=== PATIENT | male | born 1985 | race Caucasian/White ===

== ENCOUNTER 2023-07-22 07:31 | Outpatient (AMB) | payer OTHER, SELFPAY ==
--- NOTE | 2023-07-22 07:40 | MHC.PC.OV ---
Vital Signs 07/22/23 07:41 Weight 199 lb BP 108/66 Blood Pressure Location Rt brachial Position Sitting Pulse 69 Pulse Source Pulse Oximeter Pulse Oximetry (%) 98 Oxygen Delivery Method Room Air Intake Visit Reasons: Annual PE Allergies bupropion [From Wellbutrin SR] Adverse Reaction (Verified 07/22/23 07:42) adverse effect Medication List - Last Reconciled 07/22/23 by NORMA Etienne dextroamphetamine-amphetamine 15 mg 1 tab PO DAILY 30 days Tobacco use date assessed: 12/23/22 Dental Screening Dental Screen Date: 07/22/23 Did you have a dental visit in the last 12 months?: Yes Did you have a dental problem in the last 6 months where you did not have access to dental care?: No Was dental information given to patient?: Patient has dentist HPI Annual PE HPI Details Pt is here for a PE. Will order labs. [facility] Medical History (Updated 07/22/23 @ 08:05 by NORMA Etienne) Ulnar neuropathy of left upper extremity Left carpal tunnel syndrome Idiopathic peripheral neuropathy Insomnia Surgical History History of hernia repair History of root canal procedure Family History Father Unknown family medical history Mother Unknown family medical history Substance use disorder Mental health disorder Maternal Grandfather Lung cancer Maternal Grandmother Lung cancer Paternal Uncle Vasculitis Stroke Paternal Grandfather Cancer Brother No problems noted. Brother No problems noted. Sister No problems noted. Daughter No problems noted. Social History Housing: House Patient Tobacco Use Status: Former Tobacco user Quit Date: quit 2017 Tobacco use type: Smokeless Tobacco e-Cigarette/Vaping Use: Never Used Second Hand Smoke Exposure: No service: Yes Current occupational status: employed Current occupation: [employer] Current occupational exposures/hazards: No Cognitive needs: No Hearing needs: No Vision needs: No Questionnaire Thrive Questionnaire Date Thrive assessed: 12/23/22 AUDIT C Alcohol Use Questionnaire (AUDIT-C) 1. How often do you have a drink containing alcohol?: 2-3 times a week 2. How many drinks containing alcohol do you have on a typical day when you are drinking?: 1 or 2 3. How often do you have six or more drinks on one occasion?: Never Total Score: 3 Score Reviewed/Action Taken: No MARICRUZ-7 AMB Questionnaire MARICRUZ-7 Date MARICRUZ - 7 assessed: 12/23/22 Source: Developed by Drs. Todd Pollack, Eve Rivers, Lito Vogel and colleagues, with an educational kelsie from [employer]. Review of Systems Const Denies chills and Denies fever(s) Eyes Denies blurry vision ENT Denies vertigo, Denies dizziness and Denies sore throat Card Denies chest pain at rest, Denies chest pain with activity, Denies diaphoresis, Denies dyspnea and Denies dyspnea on exertion Resp Denies cough, Denies dyspnea, Denies dyspnea on exertion and Denies wheezing GI Denies abdominal pain, Denies melena, Denies hematochezia, Denies constipation, Denies diarrhea and Denies loose stools Denies hematuria Musc Reports numbness (LUE and BLE) Skin/Breast Denies lesions Neuro Denies vertigo, Denies dizziness and Reports numbness (LUE and BLE) Psych Denies anxiety, Denies depression, Denies homicidal ideation, Denies suicidal ideation and Denies other (substance abuse) Aller/Immun Denies wheezing Physical exam (Primary Care) Vital Signs: Last Vital Signs Pulse 69 07/22/23 07:41 BP 108/66 07/22/23 07:41 Pulse Ox 98 07/22/23 07:41 Oxygen Delivery Method Room Air 07/22/23 07:41 Tobacco/Smoking Status: Tobacco use Status Tobacco use date assessed 12/23/22 07/22/23 07:41 Patient Tobacco Use Status Former Tobacco user 07/22/23 07:41 Tobacco use type Smokeless Tobacco 07/22/23 07:41 e-Cigarette/Vaping Use Never Used 07/22/23 07:41 Thrive Assessment: Date of Thrive Assessment Date Thrive assessed 12/23/22 07/22/23 07:41 Const General: cooperative Nutritional Appearance: well nourished Orientation/consciousness: patient oriented x3 HENMT Head: Yes normal to inspection, Yes normocephalic and Yes atraumatic Ears: TM's normal bilaterally Eyes General: appearance normal, both eyes and all related structures Alignment and Position: alignment normal and position normal Neck Neck: Yes normal visual inspection and Yes no lymphadenopathy Thyroid: Thyroid normal Resp Effort & Inspection: normal respiratory effort Auscultation: clear to auscultation bilaterally Cardio Rate: regular rate Rhythm: regular rhythm Heart sounds: S1 normal heart sound present, S2 normal heart sound present and no murmurs GI Palpation (GI): Soft to palpation and nontender Auscultation: normal bowel sounds Male General Exam: Yes normal external exam Penis: normal penis Scrotum: scrotum normal, testes descended bilaterally and no inguinal hernias Testes: no testicular mass Skin Rashes: no rashes Neuro General: patient oriented x3, moves all extremities, no focal motor deficits and deep tendon reflexes 2+ bilaterally Romberg Test: Negative Psych Appearance: grossly normal Mental Status: mental status grossly normal Speech and movement: Normal speech and movement present Affect: normal affect Attitude: cooperative Thought process: Normal thought process present Thought content: Normal thought content present Insight: Good insight present (Psych) Judgement: Good judgement present (Psych) Assessment and Plan Assessment & Plan (1) Physical exam: Code(s): Z. - Encounter for general adult medical examination without abnormal findings Plan: Labs ordered Plan The patient agreed to the use of a director biomedical engineering for this encounter. Scribed for NORMA Hay by Debi Frederick director biomedical engineering, on 07/22/2023 at 07:50 EST. Orders: Orders Comprehensive [place]. Panel Fast Today Z00. - Encounter for general adult medical examination without abnormal findings UA CC w/rflx Micro + Cult Today Z00. - Encounter for general adult medical examination without abnormal findings Complete Blood Count Auto Diff Today Z00.00 - Encounter for general adult medical examination without abnormal findings TSH reflex Free T4 Today Z00.00 - Encounter for general adult medical examination without abnormal findings Lipid Panel Today Z00.00 - Encounter for general adult medical examination without abnormal findings Coding Level of Care Code Est Pt Prev Care 18-39y(71052) Diagnoses Physical exam Z00.00
[2023-07-22 07:41] VITALS: BP 108/66; PULSE 69; O2SAT 98
== END 2023-07-22 12:47 | disposition home or self-care (01) ==
PROVIDERS: Visit Provider Nurse Practitioner Family
DX: Z00.00 Encounter for general adult medical examination without abnormal findings (principal)
CPT/HCPCS: 99395

== ENCOUNTER 2025-04-13 10:06 | Outpatient (AMB) | payer OTHER, SELFPAY ==
--- NOTE | 2025-04-13 10:33 | A.OFFPC_ITS ---
Vital Signs 04/13/25 10:35 Height 5 ft 10 in Weight 204 lb BMI 29.3 BP 112/78 Blood Pressure Location Lt brachial Position Sitting Respiration 16 Pulse 91 Temp 98.1 F Temp Source Oral Pulse Oximetry (%) 97 Oxygen Delivery Method Room Air Intake Visit Reasons: Request a PE Bioinformatics Computer Scientist Required: No Accompanied by: Self / Same As Patient Allergies bupropion (From Wellbutrin SR) Adverse Reaction (Verified 04/13/25 10:40) adverse effect Medication List - Last Reconciled 04/13/25 by DALLAS EtienneP- dextroamphetamine-amphetamine 15 mg 1 tab PO DAILY 30 days Tobacco use date assessed: 04/13/25 Dental Screening Dental Screen Date: 04/13/25 Did you have a dental visit in the last 12 months?: Yes Did you have a dental problem in the last 6 months where you did not have access to dental care?: No Was dental information given to patient?: Patient has dentist HPI Request a PE HPI Details History of Present Illness The patient is a 39-year-old male presenting for a physical examination. He reports a history of neuropathy that was evaluated by a specialist in [place] many years ago. He is not interested in pharmacological treatment with gabapentin or pregabalin at this time. The patient also experiences chronic diarrhea, characterized by loose stools occurring up to four times daily for the past ten years. He suspects a component of irritable bowel syndrome and is considering dietary fiber supplementation and loperamide for management. Will contact me with any worsening symptoms Additionally, he reports bilateral lat muscle spasms, particularly painful when rising from a prone position. A stretching routine has been recommended to alleviate symptoms. The patient also has cervical neck pain, but denies any changing radicular symptoms. A cervical spine x-ray has been ordered to further evaluate the condition. Health Maintenance Social History Review of Systems - Neurological: Reports neuropathy, sena es interest in pharmacological treatment - Gastrointestinal: Reports chronic loos e stools for years, suspects IBS component, denies any blood in stool - Musculoskeletal: Reports bilateral lat issimus dorsi muscle spasms, denies radicular symptoms -denies any fevers chills, SI or HI Physical Exam General: Cooperative, healthy appearing, comfortable, no acute distress and well developed Orientation: Patient oriented x3 Limitations: No limitations Head: Normal to inspection Ears: Hearing grossly normal bilaterally Nose: Normal external nose present Face and sinus: Normal facial exam Eyes: Appearance normal, both eyes and all related structures Neck: Normal visual inspection and Yes full ROM, cervical neck pain present, negative Spurling's test Respiratory: Normal respiratory effort and able to speak in complete sentences. Clear to auscultation bilaterally Cardiovascular: Regular rate and rhythm. Normal S1 and S2 GI: Normal to inspection. Soft to palpation and nontender : testicles without masses/lesions and no hernias appreciated Skin: No rashes or lesions noted Neuro: Patient oriented x3, reports Extremities: Normal to inspection, reports bilateral lat pain, turning upper torso side to side with tightness described to mid lateral lats bilat Results Plan The patient will be started on a bulking fiber supplement to address the chronic diarrhea, with the option to use loperamide as needed for symptom control. A stretching routine has been recommended to alleviate the bilateral latissimus dorsi muscle spasms. Thoracic and cervical spine x-rays have been ordered to evaluate the musculoskeletal complaints, particularly the cervical neck pain. Discussion Notes I discussed with the patient the potential benefits of using bulking fiber and loperamide for managing his chronic diarrhea. We also talked about the importance of a stretching routine to help with his muscle spasms and the rationale for obtaining thoracic and cervical spine x-rays to further inves tigate his musculoskeletal symptoms. Patient Instructions - Start taking a bulking fiber supplemen t to help with loose stools. - Use loperamide as needed for diarrhea control. - Follow a stretching routine to allevia te muscle spasms. - Undergo thoracic and cervical spine x- rays as ordered. [facility] Medical History Ulnar neuropathy of left upper extremity Left carpal tunnel syndrome Idiopathic peripheral neuropathy Insomnia Surgical History History of hernia repair History of root canal procedure Family History Father Unknown family medical history Mother Unknown family medical history Substance use disorder Mental health disorder Maternal Grandfather Lung cancer Maternal Grandmother Lung cancer Paternal Uncle Vasculitis Stroke Paternal Grandfather Cancer Brother No problems noted. Brother No problems noted. Sister No problems noted. Daughter No problems noted. Social History Housing: House Patient Tobacco Use Status: Former Tobacco user Tobacco use type: Smokeless Tobacco e-Cigarette/Vaping Use: Never Used Second Hand Smoke Exposure: No service: Yes Current occupational status: employed Current occupation: [employer] Current occupational exposures/hazards: No Cognitive needs: No Hearing needs: No Vision needs: No Questionnaire PHQ-9 Over the last 2 weeks, how often have you been bothered by any of the following problems? 1. Little interest or pleasure in doing things: not at all 2. Feeling down, depressed, or hopeless: not at all 3. Trouble falling or staying asleep, or sleeping too much: several days 4. Feeling tired or having little energy: not at all 5. Poor appetite or overeating: not at all 6. Feeling bad about yourself - or that you are a failure or have let yourself or your family down: not at all 7. Trouble concentrating on things, such as reading the newspaper or watching television: several days 8. Moving or speaking so slowly that other people could have noticed. Or the opposite - being so fidgety or restless that you have been moving around a lot more than usual: not at all 9. Thoughts that you would be better off or of hurting yourself in some way: not at all Total score: 2 Depression Screening Interpretation: Negative Depression Screening Done: Yes 61739 - PHQ-9 Billing: Yes Source: Developed by Drs. Todd Pollcak, Eve Rivers, Lito Vogel and colleagues, with an educational kelsie from [employer]. Thrive Questionnaire Date Thrive assessed: 12/23/22 I am a: Patient What is your living situation today?: I have a steady place to live Within the past 12 months, did the food you bought not last and you didn't have the money to get more?: Never true Within the past 12 months, did you worry whether your food would run out before you got money to buy more?: Never true Do you have trouble paying for medicines?: No Do you have trouble getting transportation to medical appointments?: No Do you have trouble paying your heating and electricity bill?: No Do you have trouble taking care of your child, family member or friend?: No Do you have trouble with day-to-day activities such as bathing, preparing meals, shopping, managing finances, etc.?: No Are you currently unemployed and looking for a job?: No Are you interested in more education?: No Please select the resources that you would like help with: None Currently or been in a relationship where the following occur: No concerns reported THRIVE Score: 0 AUDIT C Alcohol Use Questionnaire (AUDIT-C) 1. How often do you have a drink containing alcohol?: 2-4 times a month 2. How many drinks containing alcohol do you have on a typical day when you are drinking?: 3 or 4 3. How often do you have six or more drinks on one occasion?: Less than monthly Total Score: 4 MARICRUZ-7 AMB Questionnaire MARICRUZ-7 Date MARICRUZ - 7 assessed: 04/13/25 Feeling nervous, anxious, or on edge: 0 = Not at all Not being able to stop or control worryin = Not at all Worrying too much about different things: 0 = Not at all Trouble relaxin = Not at all Being so restless that it is hard to sit still: 0 = Not at all Becoming easily annoyed or irritable: 0 = Not at all Feeling afraid as if something awful might happen: 0 = Not at all Total MARICRUZ-7 score (0-4 normal; 5-9 mild; 10-14 moderate; 15-21 severe): 0 Source: Developed by Drs. Todd Pollack, Eve Rivers, Lito Vogel and colleagues, with an educational kelsie from [employer]. MARICRUZ-7 Assessment Billing MARICRUZ-7 Assessment Tool: MARICRUZ-7 Assessment 69157 Physical exam (Primary Care) BMI result Body Mass Index 29.3 Tobacco/Smoking Status: Tobacco use Status Tobacco use date assessed 12/23/22 04/13/25 10:36 Patient Tobacco Use Status Former Tobacco user 04/13/25 10:36 Tobacco use type Smokeless Tobacco 04/13/25 10:36 e-Cigarette/Vaping Use Never Used 04/13/25 10:36 PHQ-9: PHQ-9 Score PHQ-9: Total score 2 04/13/25 10:36 Depression Screening Interpretation: Negative Thrive Assessment: Date of Thrive Assessment Date Thrive assessed 12/23/22 04/13/25 10:36 Currently or been in a relationship where the following occur: No concerns reported Coding Level of Care Code Est Pt Level 3 (79903) Est Pt Prev Care 18-39y(78349) Diagnoses Physical exam Z00.00 Thoracic back pain M54.6 Cervical neck pain with evidence of disc disease M50.90 Loose stools R19.5 Additional Codes MARICRUZ-7 Assessment Billing - MARICRUZ-7 Assessment Tool: MARICRUZ-7 Assessment 36611 ([id number]) PHQ-9 - 09626 - PHQ-9 Billing: Yes ([id number]) Assessment & Plan Assessment & Plan (1) Physical exam: Code(s): Z00.00 - Encounter for general adult medical examination without abnormal findings Category: Medical (2) Thoracic back pain: Code(s): M54.6 - Pain in thoracic spine Category: Medical (3) Cervical neck pain with evidence of disc disease: Code(s): M50.90 - Cervical disc disorder, unspecified, unspecified cervical region Category: Medical (4) Loose stools: Code(s): R19.5 - Other fecal abnormalities Category: Medical Plan . Orders: Orders Lipid Panel Today Z00.00 - Encounter for general adult medical examination without abnormal findings XR cervical spine 2V Today M50.90 - Cervical disc disorder, unspecified, un specified cervical region Complete Blood Count Auto Diff Today Z00.00 - Encounter for general adult medical examination without abnormal findings Comprehensive [place]. Panel Fast Today Z00.00 - Encounter for general adult medical examination without abnormal findings TSH reflex Free T4 Today Z00.00 - Encounter for general adult medical examination without abnormal findings UA CC w/rflx Micro + Cult Today Z00.00 - Encounter for general adult medical examination without abnormal findings XR thoracic spine 2V Today M54.6 - Pain in thoracic spine
[2025-04-13 10:35] VITALS: BP 112/78; PULSE 91; RESP 16; TEMP 36.7; O2SAT 97; BMI 29.3
== END 2025-04-13 11:38 | disposition home or self-care (01) ==
PROVIDERS: PCP Nurse Practitioner Family; Visit Provider Nurse Practitioner Family
DX: Z00.00 Encounter for general adult medical examination without abnormal findings (principal); M54.6 Pain in thoracic spine; M50.90 Cervical disc disorder, unspecified, unspecified cervical region; R19.5 Other fecal abnormalities

== ENCOUNTER → 2025-04-13 10:06 | Outpatient (BNVA) | payer OTHER, SELFPAY | PROVIDERS: PCP Nurse Practitioner Family; Visit Provider Nurse Practitioner Family | DX: Z00.00 Encounter for general adult medical examination without abnormal findings (principal); M54.6 Pain in thoracic spine; M50.90 Cervical disc disorder, unspecified, unspecified cervical region; R19.5 Other fecal abnormalities | CPT/HCPCS: 96127; 99212 ==

== ENCOUNTER 2025-04-14 07:17 | Outpatient (REF) | payer OTHER, SELFPAY ==
--- NOTE | ~2025-04-14 | XR_ITS ---
EXAMINATION: XR THORACIC SPINE CLINICAL INFORMATION: M54.6 - Pain in thoracic spine COMPARISON: None available. TECHNIQUE: AP and lateral views FINDINGS: Mild examination curvature of the thoracic spine. Mild endplate sclerosis and small marginal osteophyte formation lower thoracic spine. No acute cortical disruption or malalignment. Calcified lymph nodes in the right perihilar with a 5 mm calcified nodule right lower lung lobe region. XR/XR thoracic spine 2V IMPRESSION: Mild multilevel lower thoracic spondylosis. Mild scoliosis. Consider prior granulomatous disease/Ranke complex, right perihilar. Electronically signed by: Ranjan Cates MD 04/14/2025 01:58 PM EDT
--- NOTE | ~2025-04-14 | XR_ITS ---
EXAMINATION: XR CERVICAL SPINE CLINICAL INFORMATION: M50.90 - Cervical disc disorder, unspecified, unspecified cervical region COMPARISON: None available. TECHNIQUE: AP and lateral views FINDINGS: Craniocervical junction is intact. There is a 10% volume loss deformity inferior endplate of C5. No acute cortical disruption or malalignment. No lytic or blastic lesions. Facet joint hypertrophy on the right side of the cervical spine likely C4-5 and C5-6 levels. XR/XR cervical spine 2V IMPRESSION: Spondylosis C5-6. Electronically signed by: Ranjan Cates MD 04/14/2025 01:56 PM EDT
[2025-04-14 10:03] LABS: MANUAL DIFF FLAG NO
[2025-04-14 10:29] LABS: Hematocrit 44.1 % (42.0-52.0); Hemoglobin 14.6 g/dl (14.0-18.0); Imm Gran Abs Auto 0.02 X10*3/uL (0.00-0.03); Imm Gran Pct Auto 0.4 % (0.0-0.4); Lymphocytes Absolute Auto 2.1 X10*3/uL (1.2-4.9); Mean Corpuscular HGB Conc 33.1 g/dl (31.0-36.0); Mean Corpuscular Hemoglobin 29.0 pg (27.0-33.0); Mean Corpuscular Volume 87.5 fL (80.0-98.0); NRBC Abs Auto 0.000 X10*3/uL (0.0-0.012); NRBC Pct Auto 0.0 /100WBC (0.0-0.2); Platelet Count 253 X10*3/uL (160-400); Red Blood Count 5.04 X10*6/uL (4.60-5.80); White Blood Count 5.0 X10*3/uL (4.8-10.8)
[2025-04-14 10:40] LABS: Alanine Aminotransferase 31 U/L (0-40); Albumin Level 4.4 g/dL (3.5-5.0); Alkaline Phosphatase 97 U/L (39-117); Anion Gap 10 (12-20); Aspartate Amino Transferase 32 U/L (5-37); Blood Urea Nitrogen 12 mg/dL (9-16); Calcium 8.8 mg/dL (8.4-10.2); Carbon Dioxide 30 mmol/L (22-29); Chloride 105 mmol/L (96-108); Cholesterol 220 mg/dL (<200); Estimated Glomerular Filt Rate > 60; HDL Cholesterol 45 mg/dL (>40); Potassium 4.0 mmol/L (3.3-5.1); Sodium 141 mmol/L (135-145); Total Protein 7.3 g/dL (6.5-8.0); Triglycerides 102 mg/dL (<150)
[2025-04-14 15:52] LABS: Appearance Urine Clear; Glucose Urine UA Negative (Negative); PH 7.0 (5.0-9.0); Specific Gravity - Urine 1.020 (1.005-1.025)
== END 2025-04-14 07:18 | disposition home or self-care (01) ==
LOC: HO.HMGCX 07:17
PROVIDERS: PCP Nurse Practitioner Family; Visit Provider Nurse Practitioner Family
DX: M50.90 Cervical disc disorder, unspecified, unspecified cervical region (principal); M54.6 Pain in thoracic spine; Z13.6 Encounter for screening for cardiovascular disorders; Z00.00 Encounter for general adult medical examination without abnormal findings
CPT/HCPCS: 36415; 72040; 72070; 80053; 80061; 81003; 84443; 85025

== ENCOUNTER → 2025-04-14 13:36 | Outpatient (BNV) | payer OTHER, SELFPAY | PROVIDERS: PCP Nurse Practitioner Family; Visit Provider Radiology Diagnostic Radiology | DX: M47.812 Spondylosis without myelopathy or radiculopathy, cervical region (principal); M47.814 Spondylosis without myelopathy or radiculopathy, thoracic region | CPT/HCPCS: 72040; 72070 ==

== ENCOUNTER 2025-05-19 07:51 | Outpatient (REF) | payer OTHER, SELFPAY ==
--- NOTE | ~2025-05-19 | CT_ITS ---
CLINICAL HISTORY: J98.4 - Other disorders of lung --- Additional Notes or Special Instructions: found on XR of back Exam: CT chest with IV contrast Comparison: None provided Findings: Heart and great vessels, mediastinum are unremarkable. No bulky lymph nodes. Calcified right hilar lymph nodes, right lower lobe calcified granulomata. Lungs otherwise normal. No significant noncalcified pulmonary nodule or mass. No acute infiltrates. No pleural effusion or pneumothorax. Imaged lower neck, chest wall and upper abdomen are unremarkable. Unremarkable osseous structures. No acute fracture or suspicious lesion. Impression: 1. No acute finding. 2. Evidence of previous granulomatous exposure. This document has been electronically signed by: Chasity Greenwood MD on 05/20/2025 13:25:48
[2025-05-19] MEDS: iohexoL 350 MG/ML 100 ML INFUS..BTL IV (08:41)
== END 2025-05-19 07:52 | disposition home or self-care (01) ==
LOC: HO.CT 07:51
PROVIDERS: PCP Nurse Practitioner Family; Visit Provider Nurse Practitioner Family
DX: J98.4 Other disorders of lung (principal)
CPT/HCPCS: 71260; Q9967

== ENCOUNTER → 2025-05-19 07:52 | Outpatient (BNV) | payer OTHER, SELFPAY | PROVIDERS: PCP Nurse Practitioner Family; Visit Provider Radiology Diagnostic Radiology | DX: J98.4 Other disorders of lung (principal) | CPT/HCPCS: 71260 ==